=== PATIENT | female | born 1950 ===

== ENCOUNTER 2018-11-25 11:08 | Emergency (ER) | payer SELFPAY ==
[2018-11-25 11:17] VITALS: RESP 16; TEMP 99.6; O2SAT 96; BMI 28.8
[2018-11-25] MEDS ORDERED: Sodium Chloride 0.9% 1,000 ML IV STA (12:06)
[2018-11-25] MEDS ORDERED: Morphine 4 MG/ML VIAL ONE (12:25)
[2018-11-25] MEDS ORDERED: Morphine 4 MG/ML VIAL IV STA (12:26)
[2018-11-25 12:45] LABS: BASO % 0.2 % (0.0-2.0); EOS % 0.1 % (0.0-4.0); LYMPH # 1.2 K/uL (1.0-4.3); LYMPH % 10.7 % (20.0-40.0); MEAN CELL VOLUME 89.2 fl (81.0-99.0); MEAN CORPUSCULAR HEMOGLOBIN 30.2 pg (27.0-31.0); MEAN CORPUSCULAR HGB CONC 33.8 g/dL (33.0-37.0); MEAN PLATELET VOLUME 8.2 fl (7.2-11.7); MONO # 1.7 K/uL (0.0-0.8); MONO % 14.1 % (0.0-10.0); NEUT # 8.8 K/uL (1.8-7.0); NEUT % 74.9 % (50.0-75.0); RBC 4.63 Mil/uL (3.80-5.20); RED CELL DISTRIBUTION WIDTH 13.9 % (11.5-14.5); WHITE BLOOD COUNT 11.7 K/uL (4.8-10.8)
--- NOTE | 2018-11-25 12:52 | ED PDOC ---
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 Patient complains of nausea and a subjective fever. Patient denies vomiting, diarrhea, and urinary symptoms. Patient has not taken any medication for relief. Of note, patient came from [place] three weeks ago. PCP: None Provided Past Medical History Reviewed: Historical Data, Nursing Documentation, Vital Signs Vital Signs: Last Vital Signs Temp 99.6 F 11/25/18 11:16 Pulse 95 H 11/25/18 11:16 Resp 16 11/25/18 11:16 BP 110/70 11/25/18 11:16 Pulse Ox 96 11/25/18 11:16 - Medical History PMH: No Chronic Diseases - Surgical History Surgical History: No Surg Hx - Family History Family History: States: No Known Family Hx - Social History Current smoker - smoking cessation education provided: No Alcohol: None Drugs: Denies - Allergies Allergies/Adverse Reactions: Allergies Allergy/AdvReac Type Severity Reaction Status Date / Time No Known Allergies Allergy Verified 11/25/18 12:06 Review of Systems ROS Statement: Except As Marked, All Systems Reviewed And Found Negative Constitutional: Positive for: Fever (subjective) Gastrointestinal: Positive for: Nausea, Abdominal Pain (constant). Negative for: Vomiting, Diarrhea Genitourinary Female: Negative for: Dysuria, Hematuria Physical Exam - Reviewed Nursing Documentation Reviewed: Yes Vital Signs Reviewed: Yes - Physical Exam Appears: Positive for: Non-toxic, No Acute Distress Head Exam: Positive for: ATRAUMATIC, NORMAL INSPECTION, NORMOCEPHALIC Skin: Positive for: Normal Color, Warm, Dry Eye Exam: Positive for: Normal appearance, EOMI, PERRL Neck: Positive for: Normal, Painless ROM, Supple Cardiovascular/Chest: Positive for: Regular Rate, Rhythm. Negative for: Murmur Respiratory: Positive for: Normal Breath Sounds. Negative for: Respiratory Distress Gastrointestinal/Abdominal: Positive for: Tenderness (generalized abdominal). Negative for: Guarding, Rebound Back: Positive for: Normal Inspection. Negative for: L CVA Tenderness, R CVA Tenderness, Vertebral Tenderness Extremity: Positive for: Normal ROM. Negative for: Pedal Edema, Deformity Neurologic/Psych: Positive for: Alert, Oriented. Negative for: Motor/Sensory Deficits - Laboratory Results Result Diagrams: 11/25/18 12:39 11/25/18 12:39 - ECG ECG Rhythm: Positive for: Normal ST Segment, Sinus Rhythm Rate: 88 O2 Sat by Pulse Oximetry: 96 (RA) Pulse Ox Interpretation: Normal Medical Decision Making Medical Decision Making: Time: 1206 Plan: CT Abd & Pelvis IV Contrast EKG CMP Lipase Urine Dipstick CBC PTT Prothrombin Time Chest Two Views (PA/Lat) [Rad] Morphine 2 mg IV IV Fluids Zofran Inj 4 mg IV UA Scribe Attestation: Documented by Ke Mclain, acting as a scribe for Jenn Jernigan MD. Provider Scribe Attestation: All medical record entries made by the Scribe were at my direction and personally dictated by me. I have reviewed the chart and agree that the record accurately reflects my personal performance of the history, physical exam, medical decision making, and the department course for this patient. I have also personally directed, reviewed, and agree with the discharge instructions and disposition. Disposition - Disposition Forms: [employer] ([email or web address]) (Romansh)
[2018-11-25 12:54] LABS: ALB/GLOB RATIO 1.1 (1.0-2.1); ALBUMIN 3.9 g/dL (3.5-5.0); ALT/SGPT 28 U/L (9-52); AST/SGOT 29 U/L (14-36); BLOOD UREA NITROGEN 16 mg/dl (7-17); CALCIUM 9.2 mg/dL (8.4-10.2); GFR NON-AFRICAN AMERICAN > 60; LIPASE 24 U/L (23-300)
[2018-11-25 12:56] LABS: SQUAMOUS EPITHIAL 5 /hpf (0-5); URINE BACTERIA OCC (<OCC); URINE BILIRUBIN NEGATIVE (NEGATIVE); URINE BLOOD SMALL (NEGATIVE); URINE CLARITY CLOUDY (Clear); URINE COLOR YELLOW (YELLOW); URINE GLUCOSE (UA) NEG (NEGATIVE); URINE LEUKOCYTE ESTERASE SMALL Leu/uL (Negative); URINE PROTEIN 30 mg/dL (NEGATIVE)
[2018-11-25] MEDS ORDERED: Iohexol 300 100 ML IJ ONE (13:12)
[2018-11-25] MEDS ORDERED: Sodium Chloride 0.9% 50 ML IV ONE (13:12)
[2018-11-25 13:41] LABS: INR 1.1; PROTHROMBIN TIME 12.7 Seconds (9.8-13.1)
[2018-11-25 13:43] LABS: PARTIAL THROMBOPLASTIN TIME 31.6 Seconds (25.6-37.1)
--- NOTE | 2018-11-25 14:27 | RAD ---
Date of service: 11/25/2018 HISTORY: Abd pain COMPARISON: No prior. TECHNIQUE: Chest PA and lateral FINDINGS: LUNGS: Poor inspiration with low lung volumes, crowded bronchovascular markings and mild bibasilar atelectasis and/or scarring. PLEURA: No significant pleural effusion identified. No pneumothorax apparent. CARDIOVASCULAR: Heart appears mildly enlarged. Mild aortic atherosclerotic calcification present. OSSEOUS STRUCTURES: Mild multilevel degenerative spondylosis of the thoracic spine. Mild chronic anterior wedge deformities of a few upper/midthoracic segments. VISUALIZED UPPER ABDOMEN: Normal. OTHER FINDINGS: None. IMPRESSION: Poor inspiration with low lung volumes, crowded bronchovascular markings and mild bibasilar atelectasis and/or scarring.
--- NOTE | 2018-11-25 15:31 | ED PDOC ---
- Laboratory Results Result Diagrams: 11/25/18 12:39 11/25/18 12:39 Lab Results: PT 12.7 Seconds (9.8-13.1) 11/25/18 12:39 INR 1.1 11/25/18 12:39 APTT 31.6 Seconds (25.6-37.1) 11/25/18 12:39 Total Bilirubin 1.2 mg/dl (0.2-1.3) 11/25/18 12:39 AST 29 U/L (14-36) 11/25/18 12:39 ALT 28 U/L (9-52) 11/25/18 12:39 Alkaline Phosphatase 102 U/L (38-126) 11/25/18 12:39 Total Protein 7.4 G/DL (6.3-8.2) 11/25/18 12:39 Albumin 3.9 g/dL (3.5-5.0) 11/25/18 12:39 Globulin 3.6 gm/dL (2.2-3.9) 11/25/18 12:39 Albumin/Globulin Ratio 1.1 (1.0-2.1) 11/25/18 12:39 Lipase 24 U/L (23-300) 11/25/18 12:39 Urine Color Yellow (YELLOW) 11/25/18 12:39 Urine Clarity Cloudy (Clear) 11/25/18 12:39 Urine pH 5.0 (5.0-8.0) 11/25/18 12:39 Ur Specific [place] 1.018 (1.003-1.030) 11/25/18 12:39 Urine Protein 30 mg/dL (NEGATIVE) 11/25/18 12:39 Urine Glucose (UA) Neg mg/dL (NEGATIVE) 11/25/18 12:39 Urine Ketones 80 mg/dL (NEGATIVE) 11/25/18 12:39 Urine Blood Small (NEGATIVE) 11/25/18 12:39 Urine Nitrate Negative (NEGATIVE) 11/25/18 12:39 Urine Bilirubin Negative (NEGATIVE) 11/25/18 12:39 Urine Urobilinogen 2.0 mg/dL (0.2-1.0) H 11/25/18 12:39 Ur Leukocyte Esterase Small [place]/uL (Negative) 11/25/18 12:39 Urine RBC (Auto) 3 /hpf (0-3) 11/25/18 12:39 Urine Microscopic WBC 41 /hpf (0-5) H 11/25/18 12:39 Ur Squamous Epith Cells 5 /hpf (0-5) 11/25/18 12:39 Ur Transition Epith Cell 1 /hpf (0-3) 11/25/18 12:39 Urine Bacteria Occ (<OCC) H 11/25/18 12:39 - ECG O2 Sat by Pulse Oximetry: 96 (RA) Pulse Ox Interpretation: Normal Medical Decision Making Medical Decision Making: Time: 1500 --Patient signed out to this provider by Dr. Jernigan, pending CT results. Time: 1608 CT Abdomen and Pelvis FINDINGS: LOWER THORAX: There is mild irregular scarring changes seen both lung bases including the lingular and middle lobe regions. In addition, there are mild passive/dependent type atelectatic changes present. There is a small nodular opacity right posterior sulcus abutting the pleural surfaces likely postinflammatory no evidence of effusion or basilar pneumothorax. Heart size upper limits . No significant pericardial effusion. Normal. Small hiatal hernia. LIVER: Liver exhibits normal size. Mild diffuse fatty hepatic infiltration. Portal and splenic veins are opacified. GALLBLADDER AND BILE DUCTS: Gallbladder physiologically distended. No evidence of intraluminal gallbladder calculi.. PANCREAS: Pancreas appears grossly unremarkable without masses collections or calcifications. No significant pancreatic ductal dilatation. SPLEEN: Spleen exhibits relatively normal size and attenuation pattern without mass collection or calcification.. ADRENALS: No adrenal lesions. KIDNEYS AND URETERS: Kidneys demonstrate symmetric nephrograms. No evidence of nephrolithiasis or hydronephrosis.. BLADDER: Urinary bladder is incompletely distended which in part accounts for wall thickening. Correlation with urinalysis to exclude cystitis. REPRODUCTIVE: Unremarkable as visualized. APPENDIX: Normal appendix with no evidence of surrounding periappendiceal inflammatory changes. BOWEL: Evaluation of the bowel is somewhat limited due to the lack of oral contrast material as well as motion artifact mentioned above.. Stomach is incompletely distended. Visualized loops of small bowel exhibit normal contour and caliber. No evidence of acute mechanical small bowel obstruction. There is moderate amount of stool within the mid and distal ascending colon extending to the mid transverse colon region however motion artifact obscures detail. The possibility of mild colonic wall thickening/colitis involving this section of large bowel cannot be excluded on this exam. Clinical correlation recommended PERITONEUM: Unremarkable. No fluid collection. No free air. Small fat containing umbilical hernia. LYMPH NODES: Unremarkable. No enlarged lymph nodes. VASCULATURE: Unremarkable. No aortic aneurysm. No aortic atherosclerotic calcification or mural plaque present. BONES: Mild multilevel degenerative spondylosis of the lower thoracic and lumbar spine. OTHER FINDINGS: None. IMPRESSION: There is moderate amount of stool within the mid and distal ascending colon extending to the mid transverse colon region however motion artifact obscures detail. The possibility of mild colonic wall thickening/colitis involving this section of large bowel cannot be excluded on this exam. Clinical correlation recommended Mild fatty hepatic infiltration Irregular linear scarring changes both lung bases including the middle lobe and lingular regions. Small nodular opacity right posterior sulcus abutting the pleural surfaces likely postinflammatory as well. Time: 1618 --Labs demonstrate UTI and mild leukocytosis. Discussed with patient findings and plan of care. Patient will receive antibiotics and follow up with PMD in 1-2 days. Scribe Attestation: Documented by Jany Celaya, acting as a scribe for Annmarie Hazel MD. Provider Scribe Attestation: All medical record entries made by the Scribe were at my direction and personally dictated by me. I have reviewed the chart and agree that the record accurately reflects my personal performance of the history, physical exam, medical decision making, and the department course for this patient. I have also personally directed, reviewed, and agree with the discharge instructions and disposition. Disposition - Clinical Impression Clinical Impression: Abdominal pain, UTI (urinary tract infection), Constipation - POA Present On Arrival: None - Disposition Referrals: [facility] [Outside] ([facility]) Disposition: Routine/Home Disposition Time: 16:18 Condition: STABLE Prescriptions: RX: Acetaminophen [Tylenol Extra Strength] 1,000 mg PO Q6 PRN #100 tablet PRN Reason: FEVER OR PAIN Ciprofloxacin HCl [Cipro] 250 mg PO BID #6 tab Polyethylene Glycol 3350 [Miralax] 17 gm PO DAILY PRN #1 bottle PRN Reason: Constipation Instructions: Constipation, Adult (DC), Urinary Tract Infection, Adult (DC), Acute Abdomen (Belly Pain), Adult (DC) Print Language: ALBANIAN
--- NOTE | 2018-11-25 16:11 | CT ---
Date of service: 11/25/2018 PROCEDURE: CT Abdomen and Pelvis.. HISTORY: Generalized abdominal pain, nausea COMPARISON: None. TECHNIQUE: Contiguous axial images of the abdomen and pelvis performed following intravenous injection of approximately 95 cc Omnipaque 300 contrast material. Additional 2D sagittal and coronal reformats generated. Reformats generated. Radiation dose: Total exam DLP = 546.6 mGy-cm. This CT exam was performed using one or more of the following dose reduction techniques: Automated exposure control, adjustment of the mA and/or kV according to patient size, and/or use of iterative reconstruction technique. Note that the study is slightly limited by motion artifact which results in diminished detail on several upper and mid abdominal axial images FINDINGS: LOWER THORAX: There is mild irregular scarring changes seen both lung bases including the lingular and middle lobe regions. In addition, there are mild passive/dependent type atelectatic changes present. There is a small nodular opacity right posterior sulcus abutting the pleural surfaces likely postinflammatory no evidence of effusion or basilar pneumothorax. Heart size upper limits . No significant pericardial effusion. Normal. Small hiatal hernia. LIVER: Liver exhibits normal size. Mild diffuse fatty hepatic infiltration. Portal and splenic veins are opacified. GALLBLADDER AND BILE DUCTS: Gallbladder physiologically distended. No evidence of intraluminal gallbladder calculi.. PANCREAS: Pancreas appears grossly unremarkable without masses collections or calcifications. No significant pancreatic ductal dilatation. SPLEEN: Spleen exhibits relatively normal size and attenuation pattern without mass collection or calcification.. ADRENALS: No adrenal lesions. KIDNEYS AND URETERS: Kidneys demonstrate symmetric nephrograms. No evidence of nephrolithiasis or hydronephrosis.. BLADDER: Urinary bladder is incompletely distended which in part accounts for wall thickening. Correlation with urinalysis to exclude cystitis. REPRODUCTIVE: Unremarkable as visualized. APPENDIX: Normal appendix with no evidence of surrounding periappendiceal inflammatory changes. BOWEL: Evaluation of the bowel is somewhat limited due to the lack of oral contrast material as well as motion artifact mentioned above.. Stomach is incompletely distended. Visualized loops of small bowel exhibit normal contour and caliber. No evidence of acute mechanical small bowel obstruction. There is moderate amount of stool within the mid and distal ascending colon extending to the mid transverse colon region however motion artifact obscures detail. The possibility of mild colonic wall thickening/colitis involving this section of large bowel cannot be excluded on this exam. Clinical correlation recommended PERITONEUM: Unremarkable. No fluid collection. No free air. Small fat containing umbilical hernia. LYMPH NODES: Unremarkable. No enlarged lymph nodes. VASCULATURE: Unremarkable. No aortic aneurysm. No aortic atherosclerotic calcification or mural plaque present. BONES: Mild multilevel degenerative spondylosis of the lower thoracic and lumbar spine. OTHER FINDINGS: None. IMPRESSION: There is moderate amount of stool within the mid and distal ascending colon extending to the mid transverse colon region however motion artifact obscures detail. The possibility of mild colonic wall thickening/colitis involving this section of large bowel cannot be excluded on this exam. Clinical correlation recommended Mild fatty hepatic infiltration Irregular linear scarring changes both lung bases including the middle lobe and lingular regions. Small nodular opacity right posterior sulcus abutting the pleural surfaces likely postinflammatory as well.
[2018-11-25 17:09] VITALS: BP 110/66; PULSE 69
--- NOTE | 2018-11-25 20:16 | CARD ---
APPROVED REPORT Date of service: 11/25/2018 EKG Measurement Heart [id number] ID [id number] <Conclusion> Normal sinus rhythm T wave abnormality, consider anterior ischemia Abnormal ECG
== END 2018-11-25 17:09 | disposition home or self-care (01) ==
LOC: H.ER 11:08
DX: R10.9 Unspecified abdominal pain (principal); N39.0 Urinary tract infection, site not specified; K59.00 Constipation, unspecified; R91.8 Other nonspecific abnormal finding of lung field
CPT/HCPCS: 71046; 74177; 80053; 81003; 83690; 85025; 85610; 85730; 93005; 99284; J2270; J2405; J7030; Q9967